=== PATIENT | female | born 1995 | race American Indian/Alaskan Native ===

== ENCOUNTER 2016-09-19 21:45 | Outpatient (CLI) | payer MEDICAID ==
[2016-09-19] MEDS ORDERED: LACTATED RINGERS 1,000 ML IV ONE (21:57)
[2016-09-19 22:34] LABS: Bacteria,Urine 1+ /HPF (Negative); Bilirubin,Urine NEG (Negative); Blood,Urine NEG (Negative); Ketones,Urine NEG (Negative); Leukocyte Esterase,Urine NEG (Negative); Nitrite,Urine NEG (Negative); Protein,Urine <15 mg/dL mg/dL (Negative); Urobilinogen,Urine < 2.0 mg/dL (<2.0)
[2016-09-19 22:48] VITALS: BP 107/64
[2016-09-19] MEDS ORDERED: TYLENOL PO ONE (22:51)
== END 2016-09-19 23:10 | disposition home or self-care (01) ==
LOC: TRG 21:45
PROVIDERS: ATTEND Obstetrics & Gynecology
DX: O47.02 False labor before 37 completed weeks of gestation, second trimester (principal); Z3A.21 21 weeks gestation of pregnancy
CPT/HCPCS: 81001

== ENCOUNTER 2016-11-23 01:12 | Outpatient (CLI) | payer MEDICAID ==
[2016-11-23 01:30] VITALS: BP 110/66
[2016-11-23] MEDS ORDERED: LACTATED RINGERS 500 ML IV ONE (01:50)
[2016-11-23 02:21] LABS: Bacteria,Urine 1+ /HPF (Negative); Bilirubin,Urine NEG (Negative); Blood,Urine MOD (Negative); Ketones,Urine NEG (Negative); Leukocyte Esterase,Urine LG (Negative); Mucus,Urine FEW /HPF; Nitrite,Urine NEG (Negative); Protein,Urine <15 mg/dL mg/dL (Negative); Urobilinogen,Urine < 2.0 mg/dL (<2.0)
[2016-11-23] MEDS ORDERED: MACROBID PO ONE (03:11)
== END 2016-11-23 03:28 | disposition home or self-care (01) ==
LOC: TRG 01:12
PROVIDERS: ATTEND Obstetrics & Gynecology
DX: O47.03 False labor before 37 completed weeks of gestation, third trimester (principal); Z3A.30 30 weeks gestation of pregnancy
CPT/HCPCS: 81001; J7120

== ENCOUNTER 2017-01-20 00:25 | Outpatient (CLI) | payer MEDICAID ==
[2017-01-20 00:39] VITALS: BP 114/80
== END 2017-01-20 01:26 | disposition home or self-care (01) ==
LOC: TRG 00:25
PROVIDERS: ATTEND Obstetrics & Gynecology
DX: O47.1 False labor at or after 37 completed weeks of gestation (principal); Z3A.38 38 weeks gestation of pregnancy

== ENCOUNTER 2017-01-25 07:50 | Inpatient (IN) | payer MEDICAID ==
[2017-01-25] MEDS ORDERED: BRETHINE SUB-Q PRN (11:28)
[2017-01-25] MEDS ORDERED: ePHEDrine SULFATE IV PRN (11:28)
[2017-01-25] MEDS ORDERED: XYLOCAINE 2% INFILTRATI ONE (11:28)
[2017-01-25] MEDS ORDERED: SUBLIMAZE IV PRN (11:28)
[2017-01-25] MEDS ORDERED: BRETHINE IVP PRN (11:28)
[2017-01-25] MEDS ORDERED: PITOCin/NS 20 UNIT/1000ML DRIP 20 UNITS/1,000 ML BAG IV SCH (12:00)
[2017-01-25] MEDS ORDERED: PITOCin/NS 30 UNIT/500ML 30 UNITS/500 ML BAG IV SCH ×2 (12:00)
[2017-01-25] MEDS: LACTATED RINGERS 1,000 ML IV SCH ×2 (12:33→20:06)
[2017-01-25 13:03] LABS: Hematocrit 28.6 % (30.3-42.9); Hemoglobin 8.8 gm/dl (10.1-14.3); Mean Corpuscular HGB Conc 31 % (30-34); Mean Corpuscular Volume 80 fl (79-97); Platelet Count 299 K/mm3 (140-440); Red Cell Distribution Width 18.1 % (13.2-15.2); White Blood Count 12.9 K/mm3 (4.5-11.0)
[2017-01-25] MEDS: STADOL IV PRN ×2 (13:07→22:40)
[2017-01-25 13:13] LABS: Mean Corpuscular Hemoglobin 25 pg (28-32)
[2017-01-25] MEDS: fentaNYL-BUPIV 2 MCG/ML-0.125% 200 MCG/100 ML BAG EPIDURAL SCH ×2 (14:05→22:38)
[2017-01-25] MEDS ORDERED: NARCAN 2 MG/2 ML IV PRN (14:13)
--- NOTE | 2017-01-25 14:16 | Anesthesia Consultation ---
Anesthesia Consult and Med Hx Date of service: 01/25/17 - Airway Anesthetic Teeth Evaluation: Good ROM Head & Neck: Adequate Mental/Hyoid Distance: Adequate Intubation Access Assessment: Probably Good - Pulmonary Exam CTA: Yes - Cardiac Exam Cardiac Exam: RRR - Pre-Operative Health Status ASA Pre-Surgery Classification: ASA2, Emergency Proposed Anesthetic Plan: Epidural (3570), Spinal - Pulmonary Hx Asthma: No COPD: No Hx Pneumonia: No - Cardiovascular System Hx Hypertension: No - Central Nervous System Hx Seizures: No Hx Psychiatric Problems: Yes (depression- no meds) - Endocrine Hx Renal Disease: No Hx End Stage Renal Disease: No Hx Hypothyroidism: No Hx Hyperthyroidism: No - Hematic Hx Anemia: Yes Hx Sickle Cell Disease: No - Other Systems Hx Alcohol Use: No
[2017-01-25] MEDS ORDERED: MINERAL OIL PO PRN (22:00)
[2017-01-26] MEDS ORDERED: TUCKS PAD TP PRN (01:18)
[2017-01-26] MEDS ORDERED: ZOFRAN IV PRN (01:18)
[2017-01-26] MEDS ORDERED: DULCOLAX PR PRN (01:18)
[2017-01-26] MEDS ORDERED: TYLENOL PO PRN (01:18)
[2017-01-26] MEDS ORDERED: PHENERGAN PR PRN (01:18)
[2017-01-26] MEDS ORDERED: NORCO 5/325 PO PRN (01:18)
[2017-01-26] MEDS ORDERED: PHENERGAN PO PRN (01:18)
[2017-01-26] MEDS ORDERED: LANSINOH TP PRN (01:18)
[2017-01-26] MEDS ORDERED: PERCOCET 5/325 PO PRN (01:18)
[2017-01-26] MEDS ORDERED: BENADRYL PO PRN (01:18)
[2017-01-26] MEDS ORDERED: MILK OF MAGNESIA PO PRN (01:18)
--- NOTE | 2017-01-26 01:18 | Procedure Note ---
OB Delivery Note - Delivery Date of Delivery: 01/26/17 Surgeon: ARIANNA SPANN Estimated blood loss: 300cc - Vaginal Delivery presentation: vertex Delivery position: OA Intrapartum events: none Delivery induction: none Delivery augmentation: rupture of membranes, pitocin Delivery monitor: external FHT, external uterine Route of delivery: Delivery placenta: spontaneous Delivery cord: 3 umbilical vessels Episiotomy: none Delivery laceration: vaginal side wall Anesthesia: none Delivery comments: Patient was noted to be c/c/e and commenced to pushing a viable female infant Apgars 8 and 9 with a weight of 5 pounds 13oz at 0057. baby was placed on mother chest and suctioned nares and oropharynx. The cord was clamped and cut and baby handed to awaiting Peds staff. The placenta delivered intact at 0104. Survery of the perineum revealed vaginal side wall hemostatic no stitch required. EBL 300cc. Patient tolerated procedure. lap count correct x2. - A at 1 minute: 8 at 5 minutes: 9 Gender: Female
[2017-01-26] MEDS ORDERED: SODIUM CHLORIDE FLUSH SYRINGE 10 ML IV PRN (02:00)
[2017-01-26] MEDS: MOTRIN PO SCH ×3 (02:17→23:22)
[2017-01-26] MEDS: COLACE PO SCH ×2 (10:47→22:09)
[2017-01-26] MEDS: PRENATAL VITAMIN PO SCH (10:47)
--- NOTE | 2017-01-26 13:04 | History and Physical Report ---
History of Present Illness Date of examination: 01/25/17 Date of admission: 01/25/17 07:51 History of present illness: 22 yo LMO EDC 01/30/17 @ 39.3 weeks gestation arrived to triage for rule out labor, 4cm but no contractions or pain. Ambulated for on hour with cervical change to 5cm. Admit and Pitocin augmentation started. First trimester entry into care at 11 weeks gestation. course complicated by Chlamydia and Trichomonas. Negative LEANNA for Chlamydia, however unable to tolerated CDC recommended meds for Trichomonas secondary to emesis. Last given Tindamax for treatment on 01/18. Also treated with iron BID for anemia. She is GBS negative. 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 Family/Genetic History: none Social history: no significant social history, single - Obstetrical History Expected Date of Delivery: 01/30/17 Actual Gestation: 39 Week(s) 3 Day(s) : 3 Para: 0 Number of Living Children: 0 Medications and Allergies Allergies Allergy/AdvReac Type Severity Reaction Status Date / Time seafood Allergy Swelling Uncoded 01/20/17 00:31 Home Medications Medication Instructions Recorded Confirmed Last Taken Type Ferrous Sulfate [Feosol] 325 mg PO BID 01/20/17 01/25/17 01/23/17 History Vit-Fe Fumar-FA [ 1 tab PO QDAY 01/20/17 01/25/17 01/23/17 History Vitamin] Active Meds: Active Medications Acetaminophen (Tylenol) 650 mg PO Q4H PRN PRN Reason: Pain MILD(1-3)/Fever >100.5/VAZQUEZ Acetaminophen/Hydrocodone Bitart ([place] 5/325) 2 each PO Q6H PRN PRN Reason: Pain, Moderate (4-6) Bisacodyl (Dulcolax) 10 mg NV BID PRN PRN Reason: Constipation Diphenhydramine HCl (Benadryl) 25 mg PO Q6H PRN PRN Reason: Itching Diphtheria/Tetanus/Acell Pertussis (Boostrix) 0.5 ml IM .ONCE ONE Stop: 01/27/17 06:01 Docusate Sodium (Colace) 100 mg PO BID LYDIA Last Admin: 01/26/17 10:47 Dose: 100 mg Lactated Ringer's (Lactated Ringers) 1,000 mls @ 125 mls/hr IV DIRECT [facility] Last Admin: 01/25/17 20:06 Dose: 125 mls/hr Oxytocin/Sodium Chloride (Pitocin/Ns 20 Unit/1000ml Drip) 20 units in 1,000 mls @ 125 mls/hr IV DIRECT LYDIA Last Admin: 01/26/17 01:04 Dose: 125 mls/hr Fentanyl/Bupivacaine/Sodium Chlor (Fentanyl-Bupiv 2 Mcg/Ml-0.125%) 200 mcg in 100 mls @ 12 mls/hr EPIDURAL TITR LYDIA PRN Reason: Protocol Last Admin: 01/25/17 22:38 Dose: 12 mls/hr Ibuprofen (Motrin) 600 mg PO Q6HR [facility] Last Admin: 01/26/17 02:17 Dose: 600 mg Magnesium Hydroxide (Milk Of Magnesia) 30 ml PO HS PRN PRN Reason: Constipation Measles/Mumps/Rubella Vaccine Live (M-M-R Ii Vaccine) 0.5 ml SUB-Q .ONCE ONE Stop: 01/27/17 01:19 Mineral Oil (Mineral Oil) 30 ml PO QHS PRN PRN Reason: Constipation Multi-Ingredient Ointment (Lansinoh) 1 applic TP PRN PRN PRN Reason: Sore Nipples Multivitamins/Iron/Calcium ( Vitamin) 1 each PO QDAY [facility] Last Admin: 01/26/17 10:47 Dose: 1 each Ondansetron HCl (Zofran) 4 mg IV Q8H PRN PRN Reason: Nausea And Vomiting Oxycodone/Acetaminophen (Percocet 5/325) 1 tab PO Q6H PRN PRN Reason: Pain, Moderate (4-6) Promethazine HCl (Phenergan) 25 mg NV Q6H PRN PRN Reason: Nausea And Vomiting Promethazine HCl (Phenergan) 25 mg PO Q6H PRN PRN Reason: Nausea And Vomiting Sodium Chloride (Sodium Chloride Flush Syringe 10 Ml) 10 ml IV PRN PRN PRN Reason: LINE FLUSH Witch Rachel/Glycerin (Tucks Pad) 1 each TP PRN PRN PRN Reason: Hemorrhoid/cleansing/soothing Last Admin: 01/26/17 10:47 Dose: 1 each Review of Systems All systems: negative Genitourinary: normal appearance, contractions, no leakage of fluid - Vital Signs Vital signs: Vital Signs Temp Resp 97.6 F 18 01/25/17 08:05 01/25/17 08:05 Temp Pulse Resp BP Pulse Ox 97.7 F 95 H 16 85/46 99 01/26/17 09:25 01/26/17 09:25 01/26/17 09:25 01/26/17 09:25 01/26/17 09:25 - Obstetrical FHR: category 1 Uterine Contraction Monitor Mode: External Cervical Dilatation: 5 (per MD exam) station: -2 Results Result Diagrams: 01/25/17 12:26 Abnormal lab results 01/25/17 Range/Units 12:26 WBC 12.9 H (4.5-11.0) K/mm3 RBC 3.60 L (3.65-5.03) M/mm3 Hgb 8.8 L (10.1-14.3) gm/dl Hct 28.6 L (30.3-42.9) % MCH 25 L (28-32) pg RDW 18.1 H (13.2-15.2) % All other labs normal. Assessment and Plan A: IUP at term Active Labor Anemia P: Pitocin augmentation Analgesia and Anesthesia prn Anticipate
[2017-01-26 15:14] LABS: Hematocrit 27.6 % (30.3-42.9); Hemoglobin 8.5 gm/dl (10.1-14.3)
[2017-01-26] MEDS: FEOSOL PO SCH (22:08)
[2017-01-27] MEDS ORDERED: M-M-R II VACCINE SUB-Q ONE (01:18)
[2017-01-27] MEDS: MOTRIN PO SCH ×4 (05:29→23:10)
[2017-01-27] MEDS ORDERED: BOOSTRIX IM ONE (06:00)
--- NOTE | 2017-01-27 08:41 | Progress Note ---
Assessment and Plan O: VSS AF A: Stable PP Day 1 Anemia P: Iron BID D/C in am Subjective - Subjective Date of service: 01/27/17 Interval history: 22 yo LMO EDC 01/30/17 @ 39.3 weeks gestation arrived to triage for rule out labor, 4cm but no contractions or pain. Ambulated for on hour with cervical change to 5cm. Admit and Pitocin augmentation started. First trimester entry into care at 11 weeks gestation. course complicated by Chlamydia and Trichomonas. Negative LEANNA for Chlamydia, however unable to tolerated CDC recommended meds for Trichomonas secondary to emesis. Last given Tindamax for treatment on 01/18. Also treated with iron BID for anemia. She is GBS negative. Patient reports: appetite normal, voiding normally, ambulating normally [place]: doing well, nursing well, bottle feeding Objective - Vital Signs Latest vital signs: Vital Signs Temp Pulse Resp BP BP Pulse Ox 01/27/17 00:20 98.6 F 70 16 120/69 01/26/17 20:00 98.6 F 66 16 111/81 01/26/17 17:43 97.9 F 90 18 88/48 97 01/26/17 13:00 98.2 F 88 18 102/62 97 01/26/17 09:25 97.7 F 95 H 16 85/46 85/46 99 Intake and Output 01/26/17 01/27/17 01/27/17 22:59 06:59 14:59 Intake Total 540 300 Balance 540 300 Intake: Oral 240 Intake, Free Water 300 300 Other: Total, Intake Amount 240 # Voids Void 1 - Exam Breasts: Present: deferred Abdomen: Present: normal appearance, soft. Absent: distention Uterus: Present: normal, firm, fundal height below umbilicus. Absent: bogginess , tenderness Extremities: Present: normal - Labs Labs: Abnormal lab results 01/26/17 Range/Units 13:18 Hgb 8.5 L (10.1-14.3) gm/dl Hct 27.6 L (30.3-42.9) %
--- NOTE | 2017-01-27 08:45 | Discharge Summary ---
Providers - Providers Date of Admission: 01/25/17 07:51 Date of discharge: 01/28/17 Attending physician: ARIANNA SPANN MD Primary care physician: ARIANNA SPANN MD Hospitalization Reason for admission: active labor, IUP at term Delivery: Laceration: other (side wall) Other procedures: none complications: none Discharge diagnosis: IUP at term delivered [place] baby: female Condition at discharge: Good Disposition: DC-01 TO HOME OR SELFCARE Plan - Discharge Medications Prescriptions: Ferrous Sulfate [Feosol 325 MG tab] 325 mg PO BID #60 tablet Ibuprofen [Motrin 600 MG tab] 600 mg PO Q6HR #30 tablet - Provider Discharge Summary Activity: routine, no sex for 6 weeks, no heavy lifting 4 weeks, no strenuous exercise Diet: routine Instructions: routine Additional instructions: [] Smoking cessation referral if applicable(refer to patient education folder for contact #) [] Refer to [facility]'s [facility] Booklet Call your doctor immediately for: * Fever > 100.5 * Heavy vaginal bleeding ( >1 pad per hour) * Severe persistent headache * Shortness of breath * Reddened, hot, painful area to leg or breast * Drainage or odor from incision. * Keep incision clean and dry at all times and follow doctor's instructions regarding bathing/showering - Follow up plan Follow up: ARIANNA SPANN MD [Primary Care Provider] - (RTO 4 week )
[2017-01-27] MEDS: FEOSOL PO SCH ×2 (10:24→23:10)
[2017-01-27] MEDS: COLACE PO SCH ×2 (10:24→23:10)
[2017-01-27] MEDS: PRENATAL VITAMIN PO SCH (10:24)
[2017-01-28] MEDS: MOTRIN PO SCH ×2 (06:11→11:06)
[2017-01-28] MEDS: PRENATAL VITAMIN PO SCH (11:06)
[2017-01-28] MEDS: COLACE PO SCH (11:06)
[2017-01-28] MEDS: FEOSOL PO SCH (11:06)
[2017-01-28 12:45] VITALS: BP 102/60
== END 2017-01-28 12:55 | disposition home or self-care (01) | DRG 775 ==
LOC: TRG 07:50 → LD 07:51 → TRG 07:51 → OB 01-26 02:33
PROVIDERS: ADMIT Obstetrics & Gynecology; ATTEND Obstetrics & Gynecology
PROC: 10E0XZZ Delivery of Products of Conception, External Approach (ICD-10-PCS; principal; 2017-01-26)
PROC: 3E0234Z Introduction of Serum, Toxoid and Vaccine into Muscle, Percutaneous Approach (ICD-10-PCS; 2017-01-26)
DX: O99.02 Anemia complicating childbirth (principal); O71.4 Obstetric high vaginal laceration alone; Z3A.39 39 weeks gestation of pregnancy; Z37.0 Single live birth; Z91.013 Allergy to seafood; Z23 Encounter for immunization; D64.9 Anemia, unspecified
CPT/HCPCS: 36415; 85014; 85018; 85027; 86592; 86850; 86900; 86901; 88307; 99211; A6250; G0463; J0595; J2590; J7120

== ENCOUNTER → 2017-11-16 03:35 | Emergency (ER) | payer SELFPAY | END | disposition left against medical advice (07) | LOC: ED 03:35 | DX: N93.9 Abnormal uterine and vaginal bleeding, unspecified (principal); Z53.21 Procedure and treatment not carried out due to patient leaving prior to being seen by health care provider ==